=== PATIENT | male | born 1985 | race Caucasian/White ===

== ENCOUNTER 2021-12-28 01:41 | Emergency (ER) | payer OTHER, MEDICAID ==
[~2021-12-28] VITALS: Ht 167.6 cm; Wt 91.0 kg
[2021-12-28 02:01] VITALS: BP 130/60
[2021-12-28] MEDS ORDERED: LORAZEPAM 0.5MG TABLET PO ONE (02:30)
[2021-12-28] MEDS ORDERED: ACETAMINOPHEN 325MG TABLET PO ONE (02:30)
== END 2021-12-28 04:45 | disposition home or self-care (01) ==
LOC: ER 01:52
DX: R07.89 Other chest pain (principal); R00.2 Palpitations; F41.9 Anxiety disorder, unspecified
CPT/HCPCS: 93005; 99283

== ENCOUNTER 2023-09-30 03:47 | Emergency (ER) | payer SELFPAY ==
[~2023-09-30] VITALS: Ht 172.7 cm; Wt 78.0 kg
[2023-09-30 03:52] VITALS: O2SAT 99
[2023-09-30 04:41] LABS: BASOPHILS % 0.5 % (0.0-2.0); EOSINOPHILS % 0.3 % (0.0-5.0); HEMATOCRIT. 41.9 % (42.0-52.0); HEMOGLOBIN. 14.2 g/dL (14.0-18.0); LYMPHOCYTES % 13.7 % (20.0-50.0); MEAN CORPUSCULAR HEMOGLOBIN 28.8 pg (28.0-32.0); MEAN CORPUSCULAR HGB CONC 33.9 g/dL (31.0-37.0); MEAN PLATELET VOLUME 8.1 fl (7.4-10.4); MONOCYTES % 8.1 % (2.0-8.0); NEUTROPHILS % 77.4 % (40.0-76.0); PLATELET 241 x1000/uL (130-400); RED BLOOD CELL COUNT 4.93 mill/uL (4.7-6.1); RED CELL DISTRIBUTION WIDTH 13.6 % (11.6-14.6); WHITE BLOOD COUNT 10.4 x1000/uL (4.5-11.0)
[2023-09-30] MEDS: SODIUM CHLORIDE 0.9% 1,000 ML IV ONE (04:44)
[2023-09-30] MEDS: ONDANSETRON HCL 4MG/2ML INJ IV STA ×2 (04:44→05:40)
[2023-09-30 04:48] LABS: CHLORIDE 106 mEq/L (98-107); POTASSIUM 3.6 mEq/L (3.5-5.1); SODIUM 139 mEq/L (136-145)
[2023-09-30 04:49] LABS: CALCIUM 9.5 mg/dL (8.7-10.4); CARBON DIOXIDE 26 mEq/L (21-32)
[2023-09-30 04:51] VITALS: TEMP 98.8
[2023-09-30 04:54] LABS: CREATININE 0.9 mg/dL (0.6-1.3); GLUCOSE 131 mg/dL (70-105); UREA NITROGEN BLOOD 21 mg/dL (9-23)
[2023-09-30 04:57] LABS: ETHANOL BLOOD < 10 mg/dL (<10)
[2023-09-30] MEDS ORDERED: DICYCLOMINE 10 MG/5 ML ORAL SYR PO STA (05:22)
[2023-09-30 05:29] LABS: CLARITY URINE CLEAR (CLEAR); COLOR URINE YELLOW (YELLOW); GLUCOSE URINE NEGATIVE (NEGATIVE); KETONES URINE NEGATIVE (NEGATIVE); LEUKOCYTE ESTERASE URINE NEGATIVE (NEGATIVE); NITRITE URINE NEGATIVE (NEGATIVE); OCCULT BLOOD URINE NEGATIVE (NEGATIVE); PH URINE 6.5 (4.5-8.0); PROTEIN URINE NEGATIVE (NEGATIVE); SPECIFIC GRAVITY URINE 1.013 (1.005-1.030); UROBILINOGEN URINE 0.2 E.U./dL (0.2-1.0)
[2023-09-30] MEDS: KETOROLAC 30MG/ML VIAL IV STA (05:41)
[2023-09-30] MEDS: MAGNESIUM/ALUMINUM HYDROXIDE/SIMETHICONE 30ML UDC PO STA (05:42)
[2023-09-30] MEDS: PANTOPRAZOLE SODIUM 40 MG/VIAL IV STA (05:42)
[2023-09-30] MEDS: DICYCLOMINE HCL 10MG CAPSULE PO NR (05:43)
[2023-09-30 05:47] LABS: *AMPHETAMINES SCREEN URINE NEGATIVE (NEGATIVE); *BARBITURATES SCREEN URINE NEGATIVE (NEGATIVE); *COCAINE SCREEN URINE NEGATIVE (NEGATIVE); ECSTASY MDMA SCREEN URINE NEGATIVE (NEGATIVE); METHADONE URINE SCREEN NEGATIVE (NEGATIVE); OPIATES URINE SCREEN NEGATIVE (NEGATIVE); PHENCYCLIDINE URINE SCREEN NEGATIVE (NEGATIVE)
[2023-09-30 05:53] LABS: ALANINE AMINOTRANSFERASE 18 IU/L (10-49); ALBUMIN 5.2 g/dL (3.2-4.8); ASPARTATE AMINOTRANSFERASE 19 IU/L (<34); BILIRUBIN DIRECT 0.2 mg/dL (<=3.0)
[2023-09-30 05:54] LABS: BILIRUBIN TOTAL 0.7 mg/dL (0.1-1.0); PROTEIN TOTAL 7.7 g/dL (6.0-8.3)
[2023-09-30 06:33] LABS: *BENZODIAZEPINES SCREEN URINE NEGATIVE (NEGATIVE); CANNABINOID URINE SCREEN NEGATIVE (NEGATIVE)
[2023-09-30 08:16] VITALS: BP 101/60; PULSE 60; RESP 18
== END 2023-09-30 08:17 | disposition home or self-care (01) ==
LOC: ER 03:47
DX: R42 Dizziness and giddiness (principal); E86.0 Dehydration
CPT/HCPCS: 80076; 80305; 80048; 81003; 80320; 85025; 36415; 96361; 96374; 96375; 99285; J1885; J2405; C9113; J7030; G0480

== ENCOUNTER 2025-02-20 21:29 | Emergency (ER) | payer SELFPAY ==
[~2025-02-20] VITALS: Ht 170.2 cm; Wt 73.0 kg
[2025-02-20 21:32] VITALS: O2SAT 100
[2025-02-20] MEDS: ONDANSETRON HCL 4MG/2ML INJ IV NR (22:26)
[2025-02-20] MEDS: MAGNESIUM/ALUMINUM HYDROXIDE/SIMETHICONE 30ML UDC PO ONE (22:26)
[2025-02-20] MEDS: SODIUM CHLORIDE 0.9% 1,000 ML IV ONE (22:27)
[2025-02-20] MEDS: KETOROLAC 15MG/ML VIAL IV ONE (22:27)
[2025-02-20 23:11] LABS: BASOPHILS % 0.6 % (0.0-2.0); EOSINOPHILS % 0.2 % (0.0-5.0); HEMATOCRIT. 44.6 % (42.0-52.0); HEMOGLOBIN. 14.7 g/dL (14.0-18.0); LYMPHOCYTES % 21.8 % (20.0-50.0); MEAN PLATELET VOLUME 8.3 fl (7.4-10.4); MONOCYTES % 7.6 % (2.0-8.0); NEUTROPHILS % 69.8 % (40.0-76.0); PLATELET 273 x1000/uL (130-400); RED BLOOD CELL COUNT 5.23 mill/uL (4.7-6.1); RED CELL DISTRIBUTION WIDTH 14.0 % (11.6-14.6)
[2025-02-20 23:17] LABS: CREATININE 1.1 mg/dL (0.6-1.3); ETHANOL BLOOD < 10 mg/dL (<10); UREA NITROGEN BLOOD 14 mg/dL (9-23)
[2025-02-21] MEDS ORDERED: IBUP-1455 MT (00:19)
[2025-02-21 00:31] LABS: INFLUENZA TYPE A Presumptive Negative (Pres. Neg.); INFLUENZA TYPE B Presumptive Negative (Pres. Neg.)
[2025-02-21 00:32] LABS: RESPIRATORY SYNCYTIAL VIRUS Not Detected (Not Detectd)
[2025-02-21 00:41] VITALS: BP 126/64; PULSE 72; RESP 13; TEMP 36.9; O2SAT 100
== END 2025-02-21 00:43 | disposition home or self-care (01) ==
LOC: ER 21:29
DX: B34.9 Viral infection, unspecified (principal); R03.0 Elevated blood-pressure reading, without diagnosis of hypertension; M79.10 Myalgia, unspecified site; R07.9 Chest pain, unspecified; R11.0 Nausea; R51.9 Headache, unspecified; F41.9 Anxiety disorder, unspecified; Z20.822 Contact with and (suspected) exposure to COVID-19
CPT/HCPCS: 80048; 80320; 85025; 87420; 87804 ×2; 36415; 96361; 96374; 96375; 99284; 87426; J1885; J2405; J7030; G0480